=== PATIENT | male | born 1990 | race Caucasian/White ===

== ENCOUNTER 2021-12-15 01:13 | Emergency (ER) | payer SELFPAY ==
[~2021-12-15] VITALS: Ht 167.6 cm; Wt 86.2 kg
--- NOTE | 2021-12-15 01:35 | NUR ---
BIBRA 860 FROM [facility] C/O SI W/ NO SPECIFIC PLAN. WANTS VOLUNTARY ADMIT TO PSYCH. PT A/OX4. TOLERATING R/A WELL WITH NO SOB. AMB WITH STEADY GAIT. PT CHANGED IN GOWN, BELONGINGS COLLECTED, AND WANDED BY SECURITY. SAFETY MEASURES IN PLACE.
--- NOTE | 2021-12-15 01:48 | NUR ---
SIZING MACHINE TENDER AT PT'S BEDSIDE
--- NOTE | 2021-12-15 01:52 | NUR ---
COVID ANTIGEN AND URINE SWAB COLLECTED AND SENT TO LAB
[2021-12-15] MEDS ORDERED: IBUPROFEN 400 MG TABLET PO ONE (02:00)
--- NOTE | 2021-12-15 02:05 | NUR ---
PRENATAL TEACHER AT PT'S BEDSIDE
[2021-12-15 02:13] LABS: BASOPHILS % (AUTO) 0.3 % (0.0-2.0); EOSINOPHILS % (AUTO) 8.4 % (0.0-6.0); HEMATOCRIT 45 % (39-51); HEMOGLOBIN 15.3 g/dL (13.5-17.5); LYMPHOCYTES % (AUTO) 40.9 % (20.0-44.0); MEAN CORPUSCULAR HGB CONC 34 g/dl (31.0-36.0); MEAN CORPUSCULAR VOLUME 95 fL (80-96); MONOCYTES # (AUTO) 0.7 K/uL (0.1-1.30); NEUTROPHILS # (AUTO) 4.2 K/uL (1.8-8.9); NEUTROPHILS % (AUTO) 43.4 % (43.0-81.0); PLATELET COUNT (AUTO) 308 K/uL (150-450); WHITE BLOOD COUNT (AUTO) 9.7 K/uL (4.3-11.0)
[2021-12-15 02:17] LABS: BILIRUBIN,URINE NEGATIVE (NEGATIVE); COLOR,URINE YELLOW (YELLOW); LEUKOCYTE ESTERASE ,URINE NEGATIVE (NEGATIVE); NITRITE, URINE NEGATIVE (NEGATIVE); PROTEIN,URINE NEGATIVE (NEGATIVE); UGLUCOSE NEGATIVE (NEGATIVE); UROBILINOGEN,URINE 0.2 EU/dL (0.2)
[2021-12-15 02:21] LABS: BACTERIA,URINE Rare /HPF (None Seen); RBC,URINE 0-2 /HPF (0-2); SQUAMOUS EPITHELIAL CELL,UR Few /HPF (None Seen); WBC,URINE 0-2 /HPF (0-3)
[2021-12-15] MEDS ORDERED: IBUPROFEN 400 MG TABLET ONE (02:24)
[2021-12-15 02:42] LABS: ALBUMIN 3.9 g/dL (3.4-5.0); BILIRUBIN,DIRECT 0.1 mg/dL (0.0-0.2); BILIRUBIN,TOTAL 0.6 mg/dL (0.2-1.0); CALCIUM, SERUM 8.4 mg/dL (8.5-10.1); CREATININE 0.8 mg/dL (0.6-1.3); POTASSIUM 3.8 mmol/L (3.5-5.1); TOTAL PROTEIN, SERUM 7.4 g/dL (6.4-8.2)
--- NOTE | 2021-12-15 07:25 | NUR ---
PT SLEEPING IN ROOM. RESP EVEN AND NONLABORED. ALL NEEDS MET AT THIS TIME.
--- NOTE | 2021-12-15 07:53 | NUR ---
PT GIVEN BREAKFAST.
--- NOTE | 2021-12-15 10:15 | NUR ---
PT STATES FEELING MUCH BETTER, DENIES SI/HI AT THIS TIME. DR SANTOS IN TO SEE PATIENT. MEDICALLY CLEARED. D/C IN STABLE CONDITION.
[2021-12-15 10:22] VITALS: BP 132/84
== END 2021-12-15 10:23 | disposition home or self-care (01) ==
LOC: ER 01:17
DX: R45.851 Suicidal ideations (principal); F10.129 Alcohol abuse with intoxication, unspecified; Y90.7 Blood alcohol level of 200-239 mg/100 ml; Z20.822 Contact with and (suspected) exposure to COVID-19; M25.561 Pain in right knee; G89.29 Other chronic pain
CPT/HCPCS: 99285; 73564; 85025; 80048; 80076; 81001; 36415; 87426; 80143; 80320 ×2; 80307; C9803; G0480